=== PATIENT | male | born 1955 | race African-American/Black ===

== ENCOUNTER 2018-11-10 10:24 | Inpatient (IN) | payer MEDICARE, MEDICAID ==
[~2018-11-10] VITALS: Ht 177.8 cm; Wt 88.0 kg
[2018-11-10 11:54] LABS: HEMATOCRIT. 43.3 % (42.0-52.0); HEMOGLOBIN. 14.9 g/dL (14.0-18.0); MEAN CORPUSCULAR HEMOGLOBIN 36.3 pg (28.0-32.0); MEAN CORPUSCULAR VOLUME 105.9 fL (80.0-94.0); PLATELET 190 x1000/uL (130-400); RED BLOOD CELL COUNT 4.09 mill/uL (4.7-6.1); RED CELL DISTRIBUTION WIDTH 14.4 % (11.6-14.6)
[2018-11-10] MEDS ORDERED: ASPIRIN 325MG EC TABLET PO ONE (12:00)
[2018-11-10 12:01] LABS: PROTHROMBIN TIME 10.4 sec (9.1-11.1)
[2018-11-10 12:03] LABS: CHLORIDE 105 mEq/L (98-107)
[2018-11-10 12:07] LABS: ETHANOL BLOOD < 10 mg/dL
[2018-11-10 12:32] LABS: *BENZODIAZEPINES SCREEN URINE NEGATIVE (NEGATIVE); *COCAINE SCREEN URINE NEGATIVE (NEGATIVE); METHADONE URINE SCREEN NEGATIVE (NEGATIVE)
[2018-11-10 12:33] LABS: *AMPHETAMINES SCREEN URINE NEGATIVE (NEGATIVE); *BARBITURATES SCREEN URINE NEGATIVE (NEGATIVE); CANNABINOID URINE SCREEN PRESUMTIVE POSITIVE (NEGATIVE); OPIATES URINE SCREEN NEGATIVE (NEGATIVE); PHENCYCLIDINE URINE SCREEN NEGATIVE (NEGATIVE)
[2018-11-10 12:48] LABS: PLATELET ESTIMATE NORMAL
[2018-11-10] MEDS ORDERED: IOHEXOL-350 100 ML BOTTLE ONE (13:26)
[2018-11-10] MEDS ORDERED: HYDROCODONE/ACETAMINOPHEN 5/325MG TABLET PO ONE (15:45)
[2018-11-10] MEDS ORDERED: ONDANSETRON HCL 4MG/2ML INJ IV PRN (17:30)
[2018-11-10] MEDS ORDERED: ACETAMINOPHEN 325MG TABLET PO PRN (17:30)
[2018-11-10] MEDS ORDERED: CLONIDINE 0.1MG TABLET PO PRN (17:30)
[2018-11-10] MEDS ORDERED: DOCUSATE SODIUM 100MG CAPSULE PO PRN (17:30)
[2018-11-10] MEDS ORDERED: HYDROCODONE/ACETAMINOPHEN 5/325MG TABLET PO PRN (17:30)
[2018-11-10] MEDS ORDERED: GUAIFENESIN 200MG/10ML SUGAR FREE UDC PO PRN (17:30)
[2018-11-10 22:30] VITALS: BP 120/72
[2018-11-10 22:38] VITALS: BP 120/72
[2018-11-10] MEDS ORDERED: DEXTROSE 50% WATER 50ML SYRINGE IV PRN (22:45)
[2018-11-10] MEDS ORDERED: IBUP-2030 PO (22:54)
[2018-11-10] MEDS ORDERED: ATOR20TA PO (22:54)
[2018-11-10] MEDS: INSULIN LISPRO 100 UNITS/ML SUBCUT SCH (22:59)
[2018-11-11 00:15] VITALS: BP 131/69
[2018-11-11 04:00] VITALS: BP 129/70
[2018-11-11 07:01] LABS: CHLORIDE 111 mEq/L (98-107)
[2018-11-11 07:15] LABS: BASOPHILS % 0.9 % (0.0-2.0); HEMATOCRIT. 39.3 % (42.0-52.0); HEMOGLOBIN. 13.5 g/dL (14.0-18.0); LYMPHOCYTES % 19.3 % (20.0-50.0); MEAN CORPUSCULAR HEMOGLOBIN 36.2 pg (28.0-32.0); MEAN CORPUSCULAR VOLUME 105.2 fL (80.0-94.0); MEAN PLATELET VOLUME 10.5 fl (7.4-10.4); MONOCYTES % 11.6 % (2.0-8.0); NEUTROPHILS % 65.2 % (40.0-76.0); PLATELET 171 x1000/uL (130-400); RED BLOOD CELL COUNT 3.73 mill/uL (4.7-6.1); RED CELL DISTRIBUTION WIDTH 14.8 % (11.6-14.6)
[2018-11-11] MEDS ORDERED: CLOPIDOGREL 75MG TABLET PO SCH (07:30)
[2018-11-11] MEDS: INSULIN LISPRO 100 UNITS/ML SUBCUT SCH (07:36)
[2018-11-11] MEDS ORDERED: BLOOD SUGAR DIAGNOSTIC STRIP TEST SCH (07:40)
[2018-11-11 08:00] VITALS: BP 130/83
[2018-11-11] MEDS ORDERED: AMLODIPINE 10MG TABLET PO SCH (09:00)
[2018-11-11] MEDS ORDERED: ATORVASTATIN CALCIUM 20MG TABLET PO SCH (21:00)
== END 2018-11-11 09:53 | disposition left against medical advice (07) | DRG 65 ==
LOC: ER 10:24 → 7WST 13:22 → EDBEDREQ 13:25 → ENRESERV 20:28
PROVIDERS: ADMIT Hospitalist; ATTEND Hospitalist
DX: I63.9 Cerebral infarction, unspecified (principal); E87.2 Acidosis; E11.9 Type 2 diabetes mellitus without complications; F12.90 Cannabis use, unspecified, uncomplicated; F17.200 Nicotine dependence, unspecified, uncomplicated; I10 Essential (primary) hypertension; I25.10 Atherosclerotic heart disease of native coronary artery without angina pectoris; Z86.73 Personal history of transient ischemic attack (TIA), and cerebral infarction without residual deficits
CPT/HCPCS: 36415; 70496; 70498; 71045; 80061; 80305; 80320; 82962; 83605; 83880; 84484; 93005; 99285; Q9967; G0480